=== PATIENT | female | born 1955 | race African-American/Black ===

== ENCOUNTER 2017-02-17 08:26 | Inpatient (IN) | payer OTHER ==
[~2017-02-17] VITALS: Ht 167.6 cm; Wt 63.5 kg
[2017-02-17] MEDS ORDERED: SODIUM CHLORIDE 0.9% 1,000 ML IV ONE ×2 (09:05→10:26)
[2017-02-17] MEDS ORDERED: CARB-32 PO (09:10)
[2017-02-17] MEDS ORDERED: DONE5TAB33 PO (09:10)
[2017-02-17] MEDS ORDERED: AMLO2.5T45 PO (09:10)
[2017-02-17] MEDS ORDERED: LORA0.5T2 PO (09:10)
[2017-02-17] MEDS ORDERED: PROC5TAB PO (09:10)
[2017-02-17] MEDS ORDERED: OXYC-100 PO (09:10)
[2017-02-17] MEDS ORDERED: CHOL20004 PO (09:10)
[2017-02-17] MEDS ORDERED: BENZ1TAB7 PO (09:10)
[2017-02-17] MEDS ORDERED: VALA500T55 PO (09:10)
[2017-02-17] MEDS ORDERED: DEXA4TAB PO (09:10)
[2017-02-17] MEDS ORDERED: ONDA8TAB6 PO (09:10)
[2017-02-17 09:25] LABS: BASOPHILS % 0.4 % (0.0-2.0); EOSINOPHILS % 0.9 % (0.0-5.0); HEMOGLOBIN. 13.5 g/dL (12.0-16.0); LYMPHOCYTES % 22.9 % (20.0-50.0); MEAN CORPUSCULAR HEMOGLOBIN 28.8 pg (28.0-32.0); MEAN CORPUSCULAR VOLUME 87.6 fL (81.0-99.0); MEAN PLATELET VOLUME 7.6 fl (7.4-10.4); MONOCYTES % 8.4 % (2.0-8.0); NEUTROPHILS % 67.4 % (40.0-76.0); PLATELET 229 x1000/uL (130-400); RED BLOOD CELL COUNT 4.69 mill/uL (4.2-5.4); RED CELL DISTRIBUTION WIDTH 13.2 % (11.6-14.6)
[2017-02-17 09:26] LABS: CLARITY URINE CLOUDY (CLEAR); COLOR URINE YELLOW (YELLOW); GLUCOSE URINE NEGATIVE (NEGATIVE); KETONES URINE NEGATIVE (NEGATIVE); LEUKOCYTE ESTERASE URINE TRACE (NEGATIVE); NITRITE URINE NEGATIVE (NEGATIVE); OCCULT BLOOD URINE NEGATIVE (NEGATIVE); PH URINE 7.5 (4.5-8.0); PROTEIN URINE NEGATIVE (NEGATIVE); SPECIFIC GRAVITY URINE 1.017 (1.005-1.030); UROBILINOGEN URINE 0.2 E.U./dL (0.2-1.0)
[2017-02-17 09:34] LABS: PARTIAL THROMBOPLASTIN TIME 25.6 sec (23.4-31.0); PROTHROMBIN TIME 10.4 sec (9.4-11.6)
[2017-02-17 09:36] LABS: AMMONIA 23 uMol/L (<32)
[2017-02-17 09:43] LABS: CARBON DIOXIDE 27 mEq/L (21-32); CHLORIDE 109 mEq/L (98-107); CREATINE KINASE 66 IU/L (26-192); TROPONIN I < 0.02 ng/mL (0.00-0.04)
[2017-02-17] MEDS ORDERED: CEFTRIAXONE 1 G PREMIX 50 ML IV ONE (10:30)
[2017-02-17 12:00] VITALS: BP 154/90
[2017-02-17 12:23] VITALS: BP 151/76
[2017-02-17] MEDS ORDERED: CLONIDINE 0.1MG TABLET PO PRN (13:30)
[2017-02-17] MEDS ORDERED: ACETAMINOPHEN 325MG TABLET PO PRN (13:30)
[2017-02-17] MEDS ORDERED: MAGNESIUM/ALUMINUM HYDROXIDE/SIMETHICONE 30ML UDC PO PRN (13:30)
[2017-02-17] MEDS ORDERED: ONDANSETRON HCL 4MG/2ML VIAL IV PRN (13:30)
[2017-02-17] MEDS ORDERED: DIPHENHYDRAMINE 50MG/ML VIAL IV PRN (13:30)
[2017-02-17] MEDS ORDERED: CARBIDOPA/LEVODOPA 10/100MG TABLET PO SCH (14:00)
[2017-02-17] MEDS: SODIUM CHLORIDE 0.9% INJ 3ML FLUSH IVF SCH ×2 (14:32→21:07)
[2017-02-17 15:57] VITALS: BP 158/92
[2017-02-17] MEDS ORDERED: ALPRAZOLAM 0.5 MG TABLET PO PRN (16:30)
[2017-02-17] MEDS ORDERED: DEXT 5%/0.45% NACL KCL 20MEQ/L 1,000 ML IV SCH (16:45)
[2017-02-17] MEDS: THIAMINE HCL 100MG TABLET PO SCH (17:41)
[2017-02-17 18:08] LABS: VITAMIN B12 SERUM 547 pg/mL (211-911)
[2017-02-17 20:00] VITALS: BP 168/92
[2017-02-17] MEDS: DEXT 5%/0.45% NACL KCL 20MEQ/L 1,000 ML IV NR (20:04)
[2017-02-17] MEDS ORDERED: DONEPEZIL HCL 5MG TABLET PO SCH (21:00)
[2017-02-17 22:10] LABS: *AMPHETAMINES SCREEN URINE NEGATIVE (NEGATIVE); *BARBITURATES SCREEN URINE NEGATIVE (NEGATIVE); *BENZODIAZEPINES SCREEN URINE NEGATIVE (NEGATIVE); *COCAINE SCREEN URINE NEGATIVE (NEGATIVE); CANNABINOID URINE SCREEN NEGATIVE (NEGATIVE); METHADONE URINE SCREEN NEGATIVE (NEGATIVE); OPIATES URINE SCREEN NEGATIVE (NEGATIVE); PHENCYCLIDINE URINE SCREEN NEGATIVE (NEGATIVE)
[2017-02-18] VITALS: BP 127/62
[2017-02-18 04:00] VITALS: BP 135/63
[2017-02-18] MEDS: SODIUM CHLORIDE 0.9% INJ 3ML FLUSH IVF SCH ×2 (06:29→14:29)
[2017-02-18 08:00] VITALS: BP_SYST 130; BP_SYST 138; BP_DIAS 67; BP_DIAS 82
[2017-02-18] MEDS: THIAMINE HCL 100MG TABLET PO SCH (08:16)
[2017-02-18] MEDS: DEXT 5%/0.45% NACL KCL 20MEQ/L 1,000 ML IV NR (08:16)
[2017-02-18] MEDS ORDERED: AMLODIPINE 2.5MG TABLET PO SCH (09:00)
[2017-02-18] MEDS ORDERED: LEVOFLOXACIN 250MG TABLET PO SCH (11:00)
[2017-02-18 11:45] VITALS: BP 130/67
[2017-02-18 15:38] VITALS: BP_SYST 113; BP_SYST 140; BP_DIAS 67; BP_DIAS 83
[2017-02-18 18:18] VITALS: BP 118/72
== END 2017-02-18 19:00 | disposition home or self-care (01) | DRG 640 ==
LOC: ER 08:34 → 6WST 10:26 → ENRESERV 11:12
PROVIDERS: ADMIT Internal Medicine; ATTEND Internal Medicine
DX: E86.0 Dehydration (principal); G93.40 Encephalopathy, unspecified; N39.0 Urinary tract infection, site not specified; G20 Parkinson's disease; I10 Essential (primary) hypertension; J44.9 Chronic obstructive pulmonary disease, unspecified; G24.9 Dystonia, unspecified; D72.829 Elevated white blood cell count, unspecified; G31.84 Mild cognitive impairment of uncertain or unknown etiology; Z92.3 Personal history of irradiation; Z90.12 Acquired absence of left breast and nipple; Z82.49 Family history of ischemic heart disease and other diseases of the circulatory system; Z79.899 Other long term (current) drug therapy; Z85.3 Personal history of malignant neoplasm of breast
CPT/HCPCS: 36415; 70450; 70551; 71010; 80053; 80305; 81001; 82140; 82550; 82553; 82607; 83690; 83880; 84443; 84484; 85025; 85610; 85730; 87086; 93005; 93970; 96361; 96374; 99285; C1893; J0696; J7030